=== PATIENT | female | born 1950 | race Caucasian/White ===

== ENCOUNTER 2017-05-15 09:03 | Emergency (ER) | payer MEDICARE ==
[~2017-05-15] VITALS: Ht 167.6 cm; Wt 80.0 kg
[~2017-05-15 09:03] MED LIST: ALBU8I INH
[2017-05-15 09:06] VITALS: BP 177/108; PULSE 62; RESP 18; TEMP 98.2
[2017-05-15 09:31] VITALS: O2SAT 100
--- NOTE | 2017-05-15 09:45 | RADRPT ---
EXAM DATE/TIME: 05/15/2017 09:33 [place] COMPARISON: No previous studies available for comparison. INDICATIONS : Chest pain MEDICAL HISTORY : None. SURGICAL HISTORY : None. ENCOUNTER: Initial ACUITY: 2 days PAIN SCORE: 6/10 LOCATION: Bilateral chest FINDINGS: A single view of the chest demonstrates the lungs to be symmetrically aerated without evidence of mas s, infiltrate or effusion. The cardiomediastinal contours are unremarkable. Osseous structures are intact. CONCLUSION: No acute disease. Carolyn Blair MD on May 15, 2017 at 9:42 Board Certified Radiologist. This report was verified electronically.
[2017-05-15 09:56] VITALS: BP 151/63; PULSE 55; RESP 18; O2SAT 93
--- NOTE | 2017-05-15 10:08 | PD ---
HPI Chief Complaint: Chest Pain Time Seen by Provider: 10:00 Travel History International Travel<30 days: No Contact w/Intl Traveler<30days: No Traveled to known affect area: No History of Present Illness HPI 67-year-old female complains of chest pain. Patient states that she started having intermittent chest pain for a week and a half. The chest pain could worse for the past several days. Patient states the pain started sharp constant pain and aching pain. Patient states the pain more severe and left chest with radiation to lower rib cage area bilaterally. Patient denies any coughing congestion fever chills. Patient denies any injury. Patient denies any history of CAD. Patient denies history hypertension, diabetes, hyperlipidemia. Patient is a nonsmoker. Patient has family history of heart disease. Since states that she was admitted to the hospital for chest pain 2 years ago. Workup was negative at that time. PFSH Past Medical History Cardiovascular Problems: No Chest Pain: Yes (CHEST PAIN ) Diminished Hearing: No Neurologic: No Respiratory: Yes (PLEURISY 3 MONTHS AGO ) Influenza Vaccination: Yes ?: Not Past Surgical History Abdominal Surgery: Yes (APPENDECTOMY) Appendectomy: Yes Oral Surgery: Yes (TOSILLECTOMY) Tonsillectomy: Yes Social History Alcohol Use: Yes (OCC) Tobacco Use: No (QUIT 30 YEARS AGO ) Substance Use: No Allergies-Medications (Allergen,Severity, Reaction): Coded Allergies: codeine (Unverified Allergy, Mild, 05/15/17) Reported Meds & Prescriptions Reported Meds & Active Scripts Active No Active Prescriptions or Reported Medications Review of Systems General / Constitutional: No: Fever Eyes: No: Visual changes HENT: No: Headaches Cardiovascular: Positive: Chest Pain or Discomfort Respiratory: No: Shortness of Breath Gastrointestinal: No: Abdominal Pain Genitourinary: No: Dysuria Musculoskeletal: No: Pain Skin: No Rash Neurologic: No: Weakness Psychiatric: No: Depression Endocrine: No: Polydipsia Hematologic/Lymphatic: No: Easy Bruising Physical Exam Narrative GENERAL: Well-nourished, well-developed patient. SKIN: Focused skin assessment warm/dry. HEAD: Normocephalic. EYES: No scleral icterus. No injection or drainage. NECK: Supple, trachea midline. No JVD or lymphadenopathy. CARDIOVASCULAR: Regular rate and rhythm without murmurs, gallops, or rubs. Patient has reproducible left anterior chest wall tenderness on palpation. No crepitus no deformity noted. RESPIRATORY: Breath sounds equal bilaterally. No accessory muscle use. GASTROINTESTINAL: Abdomen soft, non-tender, nondistended. MUSCULOSKELETAL: No cyanosis, or edema. BACK: Nontender without obvious deformity. No CVA tenderness. Neurologic exam normal. Data Data Last Documented VS Vital Signs Date Time Temp Pulse Resp B/P (MAP) Pulse Ox O2 Delivery O2 Flow Rate FiO2 05/15/17 09:56 55 18 151/63 (92) 93 Room Air 05/15/17 09:06 98.2 Orders Orders Electrocardiogram (05/15/17:28) Complete Blood Count With Diff (05/15/17) Basic Metabolic Panel (Bmp) (05/15/17) Ckmb (Isoenzyme) Profile (05/15/17) Troponin I (05/15/17) Chest, Single Ap (05/15/17:) Iv Access Insert/Monitor (05/15/17) Ecg Monitoring (05/15/17) Oxygen Administration (05/15/17:) Oximetry (05/15/17:) I-Stat Profile (05/15/1730) Labs Laboratory Tests Test 05/15/17: White Blood Count 8.1 TH/MM3 Red Blood Count 4.83 MIL/MM3 Hemoglobin 14.1 GM/DL Bedside Hemoglobin G/DL Hematocrit 43.0 % Bedside Hematocrit % Mean Corpuscular Volume 89.0 FL Mean Corpuscular Hemoglobin 29.3 PG Mean Corpuscular Hemoglobin Concent 32.9 % Red Cell Distribution Width 13.1 % Platelet Count 199 TH/MM3 Mean Platelet Volume 9.7 FL Neutrophils (%) (Auto) 51.5 % Lymphocytes (%) (Auto) 36.9 % Monocytes (%) (Auto) 9.0 % Eosinophils (%) (Auto) 1.9 % Basophils (%) (Auto) 0.7 % Neutrophils # (Auto) 4.1 TH/MM3 Lymphocytes # (Auto) 3.0 TH/MM3 Monocytes # (Auto) 0.7 TH/MM3 Eosinophils # (Auto) 0.2 TH/MM3 Basophils # (Auto) 0.1 TH/MM3 CBC Comment DIFF FINAL Differential Comment Bedside Sodium 138 MMOL/L Blood Urea Nitrogen 17 MG/DL Creatinine 0.91 MG/DL Random Glucose 94 MG/DL Calcium Level 8.3 MG/DL Sodium Level 136 MEQ/L Potassium Level 4.1 MEQ/L Chloride Level 103 MEQ/L Carbon Dioxide Level 24.4 MEQ/L Bedside Potassium 4.2 MMOL/L Bedside Chloride 103 MMOL/L Anion Gap 9 MEQ/L Bedside Blood Urea Nitrogen 20 MG/DL Bedside Creatinine 0.9 MG/DL Estimat Glomerular Filtration Rate 61 ML/MIN Bedside Glucose 97 MG/DL Total Creatine Kinase 56 U/L Troponin I LESS THAN 0.02 NG/ML MDM Medical Decision Making Medical Screen Exam Complete: Yes Emergency Medical Condition: Yes Interpretation(s) Last Impressions Chest X-Ray 05/15/17927 Signed Impressions: Service Date/Time: Monday, May 15, 2017 09:33 - CONCLUSION: No acute disease. Carolyn Blair MD 11:15 AM. EKG shows sinus rhythm nonspecific ST-T wave change. CBC within normal limit. CMP within normal limit. Cardiac enzymes are normal. Differential Diagnosis Differential diagnosis including musculoskeletal, angina, TX, PE, pneumothorax. Narrative Course 67-year-old female with chest pain. Diagnosis Primary Impression: Atypical chest pain Patient Instructions: General Instructions Additional Instructions: Ibuprofen as needed for pain. Follow-up with personal physician. Return if increasing chest pain shortness of breath. Med/Other Pt SpecificInfo: Prescription(s) given Scripts Ibuprofen (Ibuprofen) 600 Mg Tab 600 MG PO TID for Pain, #30 TAB 0 Refills Prov: Jack Nicole MD 05/15/17 Disposition: 01 DISCHARGE HOME Condition: Stable Jack Nicole MD May 15, 2017 10:08
[2017-05-15 10:12] LABS: AUTOMATED NEUTROPHIL # 4.1 TH/MM3 (1.8-7.7); BASOPHIL # 0.1 TH/MM3 (0-0.2); BASOPHIL % 0.7 % (0.0-2.0); EOSINOPHIL # 0.2 TH/MM3 (0-0.4); EOSINOPHIL % 1.9 % (0.0-4.0); HEMOGLOBIN 14.1 GM/DL (11.6-15.3); LYMPH % 36.9 % (9.0-44.0); MEAN CORPUSCULAR HEMOGLOBIN 29.3 PG (27.0-34.0); MEAN CORPUSCULAR HGB CONC 32.9 % (32.0-36.0); MEAN PLATELET VOLUME 9.7 FL (7.0-11.0); MONOCYTE # 0.7 TH/MM3 (0-0.9); NEUT % 51.5 % (16.0-70.0); PLATELET COUNT 199 TH/MM3 (150-450); RED BLOOD COUNT 4.83 MIL/MM3 (4.00-5.30); RED CELL DISTRIBUTION WIDTH 13.1 % (11.6-17.2); WHITE BLOOD COUNT 8.1 TH/MM3 (4.0-11.0)
[2017-05-15 10:18] LABS: CHLORIDE 103 MEQ/L (98-107); SODIUM (NA) 136 MEQ/L (136-145)
[2017-05-15 10:23] LABS: BICARBONATE 24.4 MEQ/L (21.0-32.0); BLOOD UREA NITROGEN 17 MG/DL (7-18); CALCIUM 8.3 MG/DL (8.5-10.1); GLUCOSE,RANDOM 94 MG/DL (74-106)
[2017-05-15 10:28] LABS: CREATININE 0.91 MG/DL (0.50-1.00); GLOMERULAR FILTRATION RATE 61 ML/MIN (>89)
[2017-05-15 10:31] LABS: TROPONIN I LESS THAN 0.02 NG/ML (0.02-0.05)
[2017-05-15] MEDS ORDERED: IBUP-232 PO (11:19)
[2017-05-15 11:49] VITALS: BP 159/71
--- NOTE | 2017-05-16 17:44 | EKG ---
Date Performed: 05/15/2017 Time Performed: 09:11:14 PTAGE: 67 years EKG: SINUS BRADYCARDIA BORDERLINE ECG PREVIOUS TRACING : 11/05/2013 11.14 Since the prior tracing, there has been no significant tobin DOCTOR: Timothy North Interpretating Date/Time 05/16/2017 17:42:42
== END 2017-05-15 11:55 | disposition home or self-care (01) ==
LOC: PHED 09:03
DX: R07.89 Other chest pain (principal); R94.31 Abnormal electrocardiogram [ECG] [EKG]; Z88.5 Allergy status to narcotic agent
CPT/HCPCS: 71045; 80048; 82550; 84484; 85025; 93005; 99285